=== PATIENT | female | born 1945 | race Caucasian/White ===

== ENCOUNTER 2019-04-20 10:48 | Inpatient (IN) | payer MEDICARE, OTHER ==
[2019-04-20] VITALS (8 sets, daily range): BP systolic 116–149; BP diastolic 81–102
[~2019-04-20] VITALS: Ht 170.2 cm; Wt 115.0 kg
[2019-04-20] MEDS ORDERED: DILTIAZEM 25 MG/5 ML INJ (CARDIZEM) VIAL ONE (11:34)
--- NOTE | 2019-04-20 11:37 | ED Cardiac General ---
History of Present Illness General Chief Complaint: Cardiac/General Problems Stated Complaint: A-FIB Nursing Triage Note: PT WAS AT THE EYE DR FOR A DILATION AND THEY SENT TO ER FOR RAPID HEART RATE. PT DENIES HX OF AFIB. NO SYMPTOMS ASSOCAITED WITH THE ELEVATED HEART RATE. Source: patient Exam Limitations: no limitations History of Present Illness Date Seen by Provider: Apr 20, 2019 Time Seen by Provider: 11:06 Initial Comments 73-year-old female was referred by the local eye doctor for evaluation of atrial fibrillation on initial examination. Patient states that she has no symptoms and but has a prior diagnosis of atrial fibrillation. Patient was being evaluated by the middle school professional for evaluation of possible ferrous foreign bodies in the eye and she is going to have an MRI of her hip after hip injury. Patient denies any history of ischemic heart disease but had a prior arrhythmias atrial fib 8 yrs ago when she had a cholecystectomy with complications. She denies ever having any medication for this. She does not recall a prior diagnosis of ischemic heart dx in the past. Patient has given informed consent for diagnostic and therapeutic services. She is aware that she has atrial fibrillation with rapid ventricular response heart rates ranging from 142 down to 125. She also has a blood pressure 146/109. Has given informed consent for diltiazem 10 mg IV and we will place her on a diltiazem drip 10 mg per hour. Timing/Duration: 1 hour Severity: mild Prior CP/Workup: no prior chest pain, other (patient reports complications with a cholecystectomy 8 years ago when she was at the [facility]. Patient reports that she was diagnosed with atrial fibrillation but no other complications and did not take any medications and also did not start taking anticoagulants) Modifying Factors: improves with movement, improves with other (atrial fibrillation with RVR appears to be a serendipitous finding) NTG SL MARKETING ANALYST: No ASA po MARKETING ANALYST: No Associated Systoms: Denies Symptoms Allergies and Home Medications Allergies Coded Allergies: No Known Drug Allergies (Unverified , 04/20/19) Patient Home Medication List Home Medication List Reviewed: Yes Review of Systems Review of Systems Constitutional: no symptoms reported EENTM: No Symptoms Reported, Other (edentulous with dentures) Respiratory: No Symptoms Reported Cardiovascular: No Symptoms Reported Gastrointestinal: No Symptoms Reported, Other (history of a cholecystectomy with complications 8 years ago [place]) Genitourinary: No Symptoms Reported Musculoskeletal: back pain, joint pain (right hip), muscle pain (right hip), muscle stiffness, muscle cramps Skin: no symptoms reported Psychiatric/Neurological: Anxiety (from cardiac arrhythmia) Endocrine: No Symptoms Reported Hematologic/Lymphatic: No Symptoms Reported Past Gjvekmb-Aupjjo-Fdsdxq Hx Patient Social History Alcohol Use: Denies Use Recreational Drug Use: No Smoking Status: Never a Smoker 2nd Hand Smoke Exposure: No Recent Foreign Travel: No Contact w/Someone Who Travel: No Recent Infectious Disease Expo: No Recent Hopitalizations: No Physical Abuse: No Sexual Abuse: No Mistreated: No Fear: No Seasonal Allergies Seasonal Allergies: No Past Medical History Surgeries: Yes Gallbladder Respiratory: No Cardiac: No Neurological: No Genitourinary: No Gastrointestinal: No Abdominal Hernia Musculoskeletal: Yes Arthritis HEENT: No Cancer: No Psychosocial: No Integumentary: No Blood Disorders: No Family Medical History Reviewed Nursing Family Hx Physical Exam Vital Signs Vital Signs - First Documented 04/20/19 11:03 Temp 36.3 Pulse 139 Resp 20 B/P (MAP) 164/91 (115) Pulse Ox 99 Capillary Refill : Less Than 3 Seconds Height, Weight, BMI Height: '" Weight: lbs. oz. kg; 39.00 BMI Method: General Appearance: No Apparent Distress, Obese, Other (examination consistent with atrial fibrillation with rapid ventricular response starting diltiazem 10 mg IV and IV) HEENT: PERRL/EOMI, Normal ENT Inspection, Pharynx Normal, Moist Mucous Membranes Neck: Full Range of Motion, Normal Inspection, Non Tender, Supple Respiratory: Chest Non Tender, Lungs Clear, Normal Breath Sounds, No Accessory Muscle Use, No Respiratory Distress Cardiovascular: No Edema, No JVD, No Murmur, Normal Peripheral Pulses, Tachycardia (atrial fibrillation with rapid ventricular response treated with diltiazem 10 mg IV and diltiazem drip and amiodarone 150 IV bolus and amiodarone drip) Gastrointestinal: Normal Bowel Sounds, No Organomegaly, No Pulsatile Mass, Non Tender, Soft Extremity: Normal Capillary Refill, Normal Inspection, No Calf Tenderness, Other (she has right hip pain and right hip tenderness with decreased range of motion) Neurologic/Psychiatric: Alert, Oriented x3, No Motor/Sensory Deficits, Normal Mood/Affect, credit product analyst II-XII Norm as Tested Skin: Normal Color, Warm/Dry Lymphatic: No Adenopathy Progress/Results/Core Measures Results/Orders Lab Results Laboratory Tests Test 04/20/19 11:10 Range/Units White Blood Count 9.1 4.3-11.0 10^3/uL Red Blood Count 3.60 L 4.35-5.85 10^6/uL Hemoglobin 9.1 L 11.5-16.0 G/DL Hematocrit 31 L 35-52 % Mean Corpuscular Volume 87 80-99 FL Mean Corpuscular Hemoglobin 25 25-34 PG Mean Corpuscular Hemoglobin Concent 29 L 32-36 G/DL Red Cell Distribution Width 15.9 H 10.0-14.5 % Platelet Count 557 H 130-400 10^3/uL Mean Platelet Volume 10.0 7.4-10.4 FL Neutrophils (%) (Auto) 76 H 42-75 % Lymphocytes (%) (Auto) 16 12-44 % Monocytes (%) (Auto) 6 0-12 % Eosinophils (%) (Auto) 1 0-10 % Basophils (%) (Auto) 0 0-10 % Neutrophils # (Auto) 6.9 1.8-7.8 X 10^3 Lymphocytes # (Auto) 1.4 1.0-4.0 X 10^3 Monocytes # (Auto) 0.6 0.0-1.0 X 10^3 Eosinophils # (Auto) 0.1 0.0-0.3 10^3/uL Basophils # (Auto) 0.0 0.0-0.1 10^3/uL Neutrophils % (Manual) 78 % Lymphocytes % (Manual) 18 % Monocytes % (Manual) 4 % Microcytosis MODERATE Sodium Level 138 135-145 MMOL/L Potassium Level 4.4 3.6-5.0 MMOL/L Chloride Level 102 98-107 MMOL/L Carbon Dioxide Level 21 21-32 MMOL/L Anion Gap 15 H 5-14 MMOL/L Blood Urea Nitrogen 18 7-18 MG/DL Creatinine 0.86 0.60-1.30 MG/DL Estimat Glomerular Filtration Rate > 60 BUN/Creatinine Ratio 21 Glucose Level 104 70-105 MG/DL Calcium Level 10.1 8.5-10.1 MG/DL Corrected Calcium 9.7 8.5-10.1 MG/DL Magnesium Level 2.2 1.6-2.4 MG/DL Total Bilirubin 0.8 0.1-1.0 MG/DL Aspartate Amino Transf (AST/SGOT) 23 5-34 U/L Alanine Aminotransferase (ALT/SGPT) 13 0-55 U/L Alkaline Phosphatase 112 40-136 U/L Total Protein 8.3 H 6.4-8.2 GM/DL Albumin 4.5 3.2-4.5 GM/DL Micro Results Microbiology 04/20/19 Influenza Types A,B Antigen (JACK) - Final, Complete My Orders Orders - MIMI NINO DO Ekg Tracing (04/20/19 11:27) Cbc And Manual Diff (04/20/19 11:27) Comprehensive Metabolic Panel (04/20/19 11:27) Urinalysis (04/20/19 11:27) Magnesium (04/20/19 11:27) Chest 1 View Ap/Pa Only (04/20/19 11:27) Influenza A And B Antigens (04/20/19 11:27) Diltiazem Injection (Cardizem Injection) (04/20/19 11:34) Diltiazem Injection (Cardizem Injection) (04/20/19 12:00) Ns (Ivpb) (Sodium C... W/Diltiazem Iv Fo (04/20/19 11:50) Diltiazem Drip Pre-Mix (Cardizem Drip Pr (04/20/19 11:51) Amiodarone Bolus (04/20/19 12:45) Amiodarone Drip (04/20/19 12:45) Medications Given in ED Current Medications Medications Dose Ordered Sig/Jose E Route Start Time Stop Time Status Last Admin Dose Admin Diltiazem HCl 10 mg ONCE ONCE IVP 04/20/19 12:00 04/20/19 12:01 DC 04/20/19 12:00 10 MG Vital Signs/I&O 04/20/19 04/20/19 11:03 11:59 Temp 36.3 Pulse 139 140 Resp 20 B/P (MAP) 164/91 (115) Pulse Ox 99 Blood Pressure Mean: 115 Initial ECG Impression Date: Apr 20, 2019 Initial ECG Impression Time: 10:52 Initial ECG Rate: 135 Initial ECG Rhythm: A Fib/Flutter (AF with RVR) Initial ECG Impression: Atrial Fibrillation w/RVR Departure Impression Primary Impression: Atrial fibrillation Additional Impression: Atrial fibrillation with rapid ventricular response Disposition: ADMITTED INPATIENT Condition: Stable Admissions Decision to Admit Reason: Admit from ER (General) Decision to Admit/Date: Apr 20, 2019 Time/Decision to Admit Time: 12:46 Departure-Patient Inst. Referrals: NO,LOCAL PHYSICIAN (PCP/Family) Primary Care Physician Patient Instructions: Atrial Fibrillation MIMI NINO DO Apr 20, 2019 11:36
[2019-04-20 11:42] LABS: HEMATOCRIT 31 % (35-52); HEMOGLOBIN 9.1 G/DL (11.5-16.0); MEAN CORPUSCULAR HEMOGLOBIN 25 PG (25-34); WHITE BLOOD COUNT 9.1 10^3/uL (4.3-11.0)
[2019-04-20 11:43] LABS: BASOPHILS % (AUTO) 0 % (0-10); EOSINOPHILS # (AUTO) 0.1 10^3/uL (0.0-0.3); EOSINOPHILS % (AUTO) 1 % (0-10); LYMPHOCYTES # (AUTO) 1.4 X 10^3 (1.0-4.0); LYMPHOCYTES % (AUTO) 16 % (12-44); MEAN CORPUSCULAR HGB CONC 29 G/DL (32-36); MEAN CORPUSCULAR VOLUME 87 FL (80-99); MONOCYTES # (AUTO) 0.6 X 10^3 (0.0-1.0); MONOCYTES % (AUTO) 6 % (0-12); NEUTROPHILS # (AUTO) 6.9 X 10^3 (1.8-7.8); NEUTROPHILS % (AUTO) 76 % (42-75); PLATELET COUNT 557 10^3/uL (130-400); RED CELL DISTRIBUTION WIDTH 15.9 % (10.0-14.5)
[2019-04-20] MEDS ORDERED: DILTIAZEM IV FOR DRIP 125 MG in NS (IVPB) 100 ML IV STA (11:50)
[2019-04-20] MEDS ORDERED: dilTIAZem DRIP PRE-MIX 125 ML IV ONE (11:51)
[2019-04-20 11:58] LABS: BUN/CREATININE RATIO 21; CARBON DIOXIDE 21 MMOL/L (21-32); CHLORIDE 102 MMOL/L (98-107); CREATININE SERUM 0.86 MG/DL (0.60-1.30); GFR ESTIMATED > 60; GLUCOSE 104 MG/DL (70-105); POTASSIUM 4.4 MMOL/L (3.6-5.0); SODIUM 138 MMOL/L (135-145)
[2019-04-20 11:59] LABS: ALANINE AMINOTRANSFERASE 13 U/L (0-55); ALBUMIN 4.5 GM/DL (3.2-4.5); ALKALINE PHOSPHATASE 112 U/L (40-136); BILIRUBIN,TOTAL 0.8 MG/DL (0.1-1.0); CALCIUM 10.1 MG/DL (8.5-10.1); MAGNESIUM 2.2 MG/DL (1.6-2.4); TOTAL PROTEIN 8.3 GM/DL (6.4-8.2)
[2019-04-20] MEDS ORDERED: DILTIAZEM 25 MG/5 ML INJ (CARDIZEM) VIAL IVP ONE (12:00)
--- NOTE | 2019-04-20 12:20 | Diagnostic Imaging Report ---
EXAMINATION: Chest one view at 11:44 a.m. INDICATION: Tachycardia. COMPARISON: There are no prior studies available for comparison. FINDINGS: The heart size is at the upper limits of normal. The lungs are generally clear. There is no evidence for failure, pneumonia, or for pleural effusion. The mediastinum is not widened. The osseous structures are intact. External cardiac monitoring electrodes are noted. IMPRESSION: There is no evidence for active disease. Dictated by: Dictated on workstation # [id number]
[2019-04-20 12:26] LABS: LYMPHOCYTES % (MANUAL) 18 %; NEUTROPHILS % (MANUAL) 78 %
[2019-04-20 12:27] LABS: MICROCYTOSIS MODERATE; MONOCYTES % (MANUAL) 4 %
[2019-04-20] MEDS ORDERED: AMIODARONE INJECTION 450 MG in D5W IV SOLUTION (EXCEL) 250 ML IV ONE (12:45)
[2019-04-20] MEDS ORDERED: AMIODARONE FOR BOLUS 150 MG in D5W 100 ML IVPB 100 ML IV ONE (12:45)
[2019-04-20] MEDS ORDERED: AMIODARONE 450 MG/250 ML D5W EXCEL IV SCH ×2 (13:13)
--- NOTE | 2019-04-20 15:55 | NUR ---
ATTEMPTED TO CALL REPORT TO ICU AT THIS TIME.
[2019-04-20] MEDS ORDERED: CATHETER FLUSH 10 ML SYR IV PRN (17:15)
[2019-04-20] MEDS ORDERED: FLU QUADRIvalent (5+ YOA) 2019-2020 (AFLURIA) 0.5 ML IM ONE (17:30)
[2019-04-20] MEDS: DILTIAZEM DRIP IV SCH (17:54)
[2019-04-20] MEDS: PRE MIX IV SCH (17:54)
[2019-04-20] MEDS: APIXABAN 5 MG (ELIQUIS) TABLET PO SCH (20:24)
[2019-04-20] MEDS: CATHETER FLUSH 10 ML SYR IV SCH (21:00)
[2019-04-21] VITALS (13 sets, daily range): BP systolic 95–144; BP diastolic 59–101
[2019-04-21] MEDS: PRE MIX IV SCH ×3 (02:35→19:44)
[2019-04-21] MEDS: DILTIAZEM DRIP IV SCH ×3 (02:35→19:44)
[2019-04-21 03:33] LABS: BASOPHILS % (AUTO) 0 % (0-10); EOSINOPHILS # (AUTO) 0.1 10^3/uL (0.0-0.3); EOSINOPHILS % (AUTO) 1 % (0-10); HEMATOCRIT 28 % (35-52); HEMOGLOBIN 7.9 G/DL (11.5-16.0); LYMPHOCYTES # (AUTO) 1.3 X 10^3 (1.0-4.0); LYMPHOCYTES % (AUTO) 13 % (12-44); MEAN CORPUSCULAR HEMOGLOBIN 25 PG (25-34); MEAN CORPUSCULAR HGB CONC 28 G/DL (32-36); MEAN CORPUSCULAR VOLUME 88 FL (80-99); MEAN PLATELET VOLUME 10.1 FL (7.4-10.4); MONOCYTES # (AUTO) 0.7 X 10^3 (0.0-1.0); MONOCYTES % (AUTO) 8 % (0-12); NEUTROPHILS # (AUTO) 7.3 X 10^3 (1.8-7.8); NEUTROPHILS % (AUTO) 78 % (42-75); PLATELET COUNT 431 10^3/uL (130-400); RED CELL DISTRIBUTION WIDTH 16.6 % (10.0-14.5); WHITE BLOOD COUNT 9.4 10^3/uL (4.3-11.0)
[2019-04-21 04:01] LABS: ALBUMIN 4.2 GM/DL (3.2-4.5); CALCIUM 9.7 MG/DL (8.5-10.1); CREATININE SERUM 0.92 MG/DL (0.60-1.30); POTASSIUM 4.1 MMOL/L (3.6-5.0); TOTAL PROTEIN 7.1 GM/DL (6.4-8.2)
[2019-04-21] MEDS: CATHETER FLUSH 10 ML SYR IV SCH ×3 (05:20→21:05)
--- NOTE | 2019-04-21 06:56 | NUR ---
PT A/O. REMAINS AFEBRILE. VSS. REMAINS ON CARZIME AND AMIO GTT.TITRATED ORDERED. AT THE BEDSIDE. DENIES NEEDS. STABLE. SLEEPS WELL FOR THE NIGHT. WILL GIVE REPORT TO ONCOMING RN
[2019-04-21] MEDS: APIXABAN 5 MG (ELIQUIS) TABLET PO SCH ×2 (08:26→21:05)
[2019-04-21] MEDS ORDERED: POLYETHYLENE GLYCOL 17 GM (MIRALAX) PACK PO PRN (10:45)
[2019-04-21] MEDS ORDERED: ONDANSETRON 4 MG/2 ML (SDV) Z0FRAN IV PRN (10:45)
[2019-04-21] MEDS ORDERED: ANTACID SUSP 30 ML UDC (MYLANTA) PO PRN (10:45)
[2019-04-21] MEDS ORDERED: ONDANSETRON 4 MG (ZOFRAN) ORAL DISSOLVE TAB PO PRN (10:45)
[2019-04-21] MEDS ORDERED: MELATONIN 3 MG TABLET PO PRN (10:45)
[2019-04-21] MEDS ORDERED: BISACODYL 10 MG SUPP (DULCOLAX) PR PRN (10:45)
--- NOTE | 2019-04-21 10:49 | History & Physical-Hospitalist ---
History of Present Illness HPI/Chief Complaint Vinod Starks is a 73-year-old female with no known past medical history who presented from an optometry clinic with atrial fibrillation with rapid ventricular response. She reports that she has been having issues with her hip and she believes she has torn something. She also has a history of exposure to metals and there is concern that there may be metal in her eyes and that is why she was having an optometry evaluation prior to an MRI. At that evaluation they found her heart rate to be well above 100 and they sent her to the emergency room. She has no history of hypertension, diabetes, irregular heartbeat, or heart disease. She does not take any regular medications other than pain medicines at this time for her hip. Source: patient Exam Limitations: no limitations Date Seen 04/21/19 Time Seen by a Provider: 08:10 Attending Physician Louisa Lucia MD PCP No,Local Physician Referring Physician Date of Admission Apr 20, 2019 at 14:08 Home Medications & Allergies Home Medications Reviewed patient Home Medication Reconciliation performed by pharmacy medication reconciliations cogeneration technician and/or nursing. Patients Allergies have been reviewed. Allergies Allergies Coded Allergies No Known Drug Allergies (Unverified04/20/19) Past Ptnbtpw-Mrsqni-Apgwgd Hx Past Med/Social Hx: Reviewed Nursing Past Med/Soc Hx Patient Social History Alcohol Use: Denies Use Recreational Drug Use: No Smoking Status: Never a Smoker 2nd Hand Smoke Exposure: No Recent Foreign Travel: No Contact w/other who traveled: No Recent Hopitalizations: No Recent Infectious Disease Expo: No Immunizations Up To Date Date of Pneumonia Vaccine: Apr 20, 2011 Seasonal Allergies Seasonal Allergies: No Past Medical History Surgeries: Gallbladder Gastrointestinal: Abdominal Hernia Musculoskeletal: Arthritis History of Blood Disorders: No Family History Reviewed Nursing Family Hx Review of Systems Constitutional: no symptoms reported EENTM: no symptoms reported Respiratory: no symptoms reported Cardiovascular: palpitations Gastrointestinal: no symptoms reported Genitourinary: no symptoms reported Musculoskeletal: joint pain Skin: no symptoms reported Psychiatric/Neurological: No Symptoms Reported Physical Exam Physical Exam Vital Signs Vital Signs - First Documented 04/20/19 04/20/19 11:03 15:59 Temp 36.3 Pulse 139 Resp 20 B/P (MAP) 164/91 (115) Pulse Ox 99 O2 Delivery Room Air Capillary Refill : Less Than 3 SecondsLess Than 3 Seconds Height, Weight, BMI Height: '" Weight: lbs. oz. kg; 41.97 BMI Method: General Appearance: No Apparent Distress, Obese HEENT: PERRL/EOMI, Pharynx Normal Neck: Normal Inspection, Supple Respiratory: Lungs Clear, Normal Breath Sounds, No Respiratory Distress Cardiovascular: Irregularly Irregular, Tachycardia Gastrointestinal: Normal Bowel Sounds, Non Tender, Soft Extremity: Normal Inspection, Non Tender, Pedal Edema Neurologic/Psychiatric: Alert, Oriented x3, No Motor/Sensory Deficits, Normal Mood/Affect Skin: Normal Color, Warm/Dry Results Results/Procedures Labs Laboratory Tests 04/20/19 11:10 04/21/19 03:23 Patient resulted labs reviewed. Imaging: Reviewed Imaging Report Assessment/Plan Admission Diagnosis paroxysmal atrial fibrillation with rapid ventricular response Admission Status: Inpatient Order (span 2 midnights) Reason for Inpatient Admission: A. fib with RVR requiring IV medications and further evaluation Assessment and Plan Paroxysmal atrial fibrillation with rapid ventricular response Cardiology consulted, appreciate assistance EKG revealed atrial fibrillation Started on diltiazem and amiodarone Eliquis started for stroke prophylaxis Echocardiogram ordered Potassium and magnesium within normal limits Monitor on telemetry check TSH Microcytic anemia hemoglobin 7.9 MCV 88, differential revealed microcytosis Obtain iron studies, B12, folate morbid obesity BMI 42, clinically significant, no acute management needs DVT prophylaxis: already receiving therapeutic anticoagulation Diagnosis/Problems Diagnosis/Problems (1) Atrial fibrillation with rapid ventricular response Status: Acute (2) Anemia Status: Chronic Qualifiers: Anemia type: unspecified type Qualified Codes: D64.9 - Anemia, unspecified (3) Morbid obesity Status: Chronic Clinical Quality Measures AMI/AHF: ASA po Prior to arrival: No DVT/VTE Risk/Contraindication: Risk Factor Score Per Nursin RFS Level Per Nursing on Admit: 4+=Very High LOUISA LUCIA MD Apr 21, 2019 10:49
--- NOTE | 2019-04-21 14:31 | Consultation-Cardiology ---
HPI-Cardiology Cardiology Consultation: Date of Consultation 04/21/19 Date of Admission Attending Physician Louisa Rucker MD Admitting Physician Ana,Local Physician Consulting Physician Megan AWY MD HPI: Time Seen by a Provider: 12:00 Chief Complaint: Rapid atrial fibrillation This is a 73-year-old lady who denies having any significant part cardiac history. She has significant pain in the hip joint. She requires an MRI. However she was previously employed in a factory and there is possibility of small metal particles in the eye. Therefore for that purpose she went to an op tometrist where she was found to have significantly elevated blood pressure and heart rate. She was therefore transferred to the ER. She denies active smoking or pertinent family history. She was found to be in atrial fibrillation with RVR and transferred to [facility]. She denies any significant chest pain, syncope, near-syncope. Review of Systems-Cardiology Review of Systems Constitutional: As described under HPI; No As described under HPI, No no symptoms reported, No chills, No fever, No lightheadedness Eyes: No As described under HPI, No no symptoms reported, No blindness, No blurred vision, No contact lenses, No drainage, No decreased acuity, No foreign body sensation, No pain, No vision change Ears/Nose/Throat: No As described under HPI, No no symptoms reported, No chronic hearing loss, No ear discharge, No ear pain, No nasal drainage, No ulcerations Respiratory: No no symptoms reported; As described under HPI; No As described under HPI, No cough, No orthopnea, No shortness of breath, No SOB with excertion Cardiovascular: No no symptoms reported; As described under HPI; No As described under HPI, No chest pain, No edema, No irregular heart rate, No lightheadedness, No palpitations Gastrointestinal: No no symptoms reported, No As described under HPI, No abdomen distended, No abdominal pain, No blood streaked bowels, No constipation, No diarrhea, No nausea, No vomiting, No stool coloration changes Genitourinary: No As described under HPI, No burning, No dysuria, No discharge, No frequency, No flank pain, No hematuria, No urgency : Yes : No Skin: No rash, No skin related problems, No ulcerations Psychiatric/Neurological: No anxiety, No depression, No seizure, No focal weakness, No syncope Hematologic: No bleeding abnormalities JUU-Ksvagk-Jnpzqs Hx Patient Social History Alcohol Use: Denies Use Recreational Drug Use: No Smoking Status: Never a Smoker 2nd Hand Smoke Exposure: No Recent Foreign Travel: No Recent Infectious Disease Expo: No Hospitalization with Isolation: Denies Immunizations Up To Date Date of Pneumonia Vaccine: Apr 20, 2011 Past Medical History PMH As described under Assessment. Allergies and Home Medications Allergies Coded Allergies: No Known Drug Allergies (Unverified , 04/20/19) Patient Home Medication List Home Medication List Reviewed: Yes Physical Exam-Cardiology Physical Exam Vital Signs/I&O 04/21/19 04/21/19 04/21/19 04/21/19 03:00 04:00 04:00 05:00 Temp 36.2 Pulse 99 87 87 Resp 15 19 16 B/P (MAP) 115/76 (89) Pulse Ox 97 93 94 O2 Delivery Room Air Room Air 04/21/19 04/21/19 04/21/19 04/21/19 06:00 07:00 08:00 08:00 Pulse 78 99 111 Resp 15 15 B/P (MAP) 118/71 (87) 144/80 (101) Pulse Ox 97 96 99 O2 Delivery Room Air Room Air Room Air 04/21/19 04/21/19 04/21/19 04/21/19 08:38 09:00 12:00 13:00 Temp 35.8 Pulse 104 107 Resp 19 B/P (MAP) 132/82 (99) Pulse Ox 96 99 O2 Delivery Room Air Room Air 04/21/19 04/21/19 13:00 14:00 Pulse 107 103 Resp 15 28 B/P (MAP) 129/86 (100) 130/82 (98) Pulse Ox 100 99 O2 Delivery Room Air Room Air 04/21/19 00:00 Intake Total 200 ml Output Total 300 ml Balance -100 ml Capillary Refill : Less Than 3 SecondsLess Than 3 Seconds Constitutional: appears stated age, AAO x 3; No apparent distress; PERRL, well- developed, well-nourished HEENT: PERRL; No discharge; hearing is well preserved, oral hygience is good; No ulceration, No xanthelasmas are seen Neck: No carotid bruit; carotid pulses are 2 + bilaterally Respiratory: chest is bilaterally symmetric, lungs clear to auscultation Cardiovascular: irregularly irregular, tachycardia, S1 and S2 Gastrointestinal: soft, audible bowel sounds; No spleenomegaly Rectal: deferred Extremities: normal range of motion, non-tender, normal inspection; No clubbing, No cyanosis; no lower extremity edema bilateral; No significant edema Neurologic/Psychiatric: no motor/sensory deficits, alert, normal mood/affect, oriented x 3, power is 5/5 both on sides Skin: normal color, warm/dry; No rash, No ulcerations Data Review Labs Laboratory Tests 04/21/19 03:23: White Blood Count 9.4, Red Blood Count 3.20L, Hemoglobin 7.9L, Hematocrit 28L, Mean Corpuscular Volume 88, Mean Corpuscular Hemoglobin 25, Mean Corpuscular Hemoglobin Concent 28L, Red Cell Distribution Width 16.6H, Platelet Count 431H, Mean Platelet Volume 10.1, Neutrophils (%) (Auto) 78H, Lymphocytes (%) (Auto) 13, Monocytes (%) (Auto) 8, Eosinophils (%) (Auto) 1, Basophils (%) (Auto) 0, Neutrophils # (Auto) 7.3, Lymphocytes # (Auto) 1.3, Monocytes # (Auto) 0.7, Eosinophils # (Auto) 0.1, Basophils # (Auto) 0.0, Sodium Level 136, Potassium Level 4.1, Chloride Level 106, Carbon Dioxide Level 21, Anion Gap 9, Blood Urea Nitrogen 14, Creatinine 0.92, Estimat Glomerular Filtration Rate 60, BUN/Creatinine Ratio 15, Glucose Level 109H, Calcium Level 9.7, Corrected Calcium 9.5, Total Bilirubin 1.0, Aspartate Amino Transf (AST/SGOT) 12, Alanine Aminotransferase (ALT/SGPT) 12, Alkaline Phosphatase 109, Total Protein 7.1, Albumin 4.2 04/21/19 11:15: Thyroid Stimulating Hormone (TSH) 0.96 Microbiology 04/20/19 Influenza Types A,B Antigen (JACK) - Final, Complete ECG Impression ECG Initial ECG Impression: Atrial Fibrillation w/RVR A/P-Cardiology Assessment/Admission Diagnosis Atrial fibrillation with rapid ventricular rate, Typical atrial flutter, Significantly elevated blood sugars, Anemia. Plan Atrial fibrillation with rapid ventricular rate, IV amiodarone, IV Cardizem, Eliquis. If she doesn't convert on her own overnight. Transesophageal echocardiogram assisted cardioversion in the morning. I discussed at length with the patient about the pathophysiology of atrial fibrillation. Informed consent was taken. 1/500 chance of stroke with cardioversion. A small chance of feces future damage with transesophageal echocardiogram. Typical atrial flutter, close review of the telemetry strips suggest atrial flutter which degenerates into atrial fibrillation. Typical atrial flutter cannot be ruled out. She may require typical atrial flutter ablation in the future. Significantly elevated blood sugars, deferred to the primary team. Anemia. Deferred to the primary team. Thank you for your consultation. Please call me if you have any questions. Raghav Way MD, FACP, FACC, FSCAI, FHRS, CCDS Interventional Cardiology Cardiac Electrophysiology Vascular Medicine and Endovascular Interventions Clinical Quality Measures AMI/AHF: ASA po Prior to arrival: No DVT/VTE Risk/Contraindication: Risk Factor Score Per Nursin RFS Level Per Nursing on Admit: 4+=Very High Megan WAY MD Apr 21, 2019 14:31
[2019-04-21] MEDS: AMIODARONE 200 MG (CORDARONE) TAB PO SCH (14:39)
[2019-04-21] MEDS: ACETAMINOPHEN 325 MG TABLET PO PRN (18:48)
[2019-04-21] MEDS: SENNOSIDES 8.6 MG (SENOKOT) TAB PO SCH (21:05)
[2019-04-21] MEDS: DOCUSATE SODIUM 100 MG (COLACE) CAP PO SCH (21:05)
[2019-04-22] VITALS (10 sets, daily range): BP systolic 113–136; BP diastolic 65–92
[2019-04-22 03:18] LABS: BASOPHILS % (AUTO) 0 % (0-10); EOSINOPHILS # (AUTO) 0.2 10^3/uL (0.0-0.3); EOSINOPHILS % (AUTO) 2 % (0-10); HEMATOCRIT 28 % (35-52); HEMOGLOBIN 7.9 G/DL (11.5-16.0); LYMPHOCYTES # (AUTO) 1.5 X 10^3 (1.0-4.0); LYMPHOCYTES % (AUTO) 19 % (12-44); MEAN CORPUSCULAR HEMOGLOBIN 25 PG (25-34); MEAN CORPUSCULAR HGB CONC 29 G/DL (32-36); MEAN CORPUSCULAR VOLUME 88 FL (80-99); MEAN PLATELET VOLUME 9.9 FL (7.4-10.4); MONOCYTES # (AUTO) 0.7 X 10^3 (0.0-1.0); MONOCYTES % (AUTO) 9 % (0-12); NEUTROPHILS # (AUTO) 5.7 X 10^3 (1.8-7.8); NEUTROPHILS % (AUTO) 70 % (42-75); PLATELET COUNT 444 10^3/uL (130-400); RED CELL DISTRIBUTION WIDTH 16.2 % (10.0-14.5); WHITE BLOOD COUNT 8.1 10^3/uL (4.3-11.0)
[2019-04-22 03:44] LABS: ALANINE AMINOTRANSFERASE 12 U/L (0-55); ALBUMIN 3.9 GM/DL (3.2-4.5); ALKALINE PHOSPHATASE 100 U/L (40-136); BILIRUBIN,TOTAL 0.9 MG/DL (0.1-1.0); BUN/CREATININE RATIO 17; CALCIUM 9.6 MG/DL (8.5-10.1); CARBON DIOXIDE 19 MMOL/L (21-32); CHLORIDE 108 MMOL/L (98-107); GFR ESTIMATED > 60; GLUCOSE 106 MG/DL (70-105); POTASSIUM 3.8 MMOL/L (3.6-5.0); SODIUM 138 MMOL/L (135-145); TOTAL PROTEIN 7.2 GM/DL (6.4-8.2)
[2019-04-22] MEDS: DILTIAZEM DRIP IV SCH (04:33)
[2019-04-22] MEDS: PRE MIX IV SCH (04:33)
[2019-04-22] MEDS: CATHETER FLUSH 10 ML SYR IV SCH ×3 (06:22→21:27)
[2019-04-22] MEDS: SENNOSIDES 8.6 MG (SENOKOT) TAB PO SCH ×2 (07:58→21:25)
[2019-04-22] MEDS: APIXABAN 5 MG (ELIQUIS) TABLET PO SCH ×2 (07:58→21:25)
[2019-04-22] MEDS: DOCUSATE SODIUM 100 MG (COLACE) CAP PO SCH ×2 (07:58→21:25)
[2019-04-22] MEDS: AMIODARONE 200 MG (CORDARONE) TAB PO SCH (07:58)
[2019-04-22] MEDS: FERROUS SULF 325 MG (IRON) TAB PO SCH ×3 (08:01→17:43)
[2019-04-22] MEDS ORDERED: LIDOCAINE 2% VISCOUS 15 ML UDC PO ONE ×2 (09:30→10:00)
[2019-04-22] MEDS: NS IV 500 ML 500 ML IV SCH (09:52)
--- NOTE | 2019-04-22 09:55 | Progress Note - Hospitalist ---
Subjective HPI/CC On Admission Date Seen by Provider: Apr 22, 2019 Time Seen by Provider: 08:20 Vinod Starks is a 73-year-old female with no known past medical history who presented from an optometry clinic with atrial fibrillation with rapid ventricular response. She reports that she has been having issues with her hip and she believes she has torn something. She also has a history of exposure to metals and there is concern that there may be metal in her eyes and that is why she was having an optometry evaluation prior to an MRI. At that evaluation they found her heart rate to be well above 100 and they sent her to the emergency room. She has no history of hypertension, diabetes, irregular heartbeat, or heart disease. She does not take any regular medications other than pain medicines at this time for her hip. Subjective/Events-last exam She reports that she slept well last night. She denies any chest pain or palpitations. She denies any shortness of breath. She denies any fevers or chi lls. She denies any abdominal pain, nausea, or vomiting. She has no other complaints or concerns. Objective Exam Vital Signs Vital Signs Date Time Temp Pulse Resp B/P (MAP) Pulse Ox O2 Delivery O2 Flow Rate FiO2 04/22/19 09:00 98 Room Air 04/22/19 08:00 35.8 04/22/19 07:00 90 04/22/19 06:00 22 113/80 (91) Capillary Refill : Less Than 3 SecondsLess Than 3 Seconds General Appearance: No Apparent Distress, Obese HEENT: PERRL/EOMI, Pharynx Normal Neck: Normal Inspection, Supple Respiratory: Lungs Clear, Normal Breath Sounds, No Respiratory Distress Cardiovascular: Irregularly Irregular, Tachycardia Gastrointestinal: Normal Bowel Sounds, Non Tender, Soft Extremity: Normal Inspection, Non Tender, No Pedal Edema Neurologic/Psychiatric: Alert, Oriented x3, No Motor/Sensory Deficits, Normal Mood/Affect Skin: Normal Color, Warm/Dry Results/Procedures Lab Laboratory Tests 04/22/19 02:57 Patient resulted labs reviewed. Imaging: Reviewed Imaging Report Assessment/Plan Assessment and Plan Assess & Plan/Chief Complaint Paroxysmal atrial fibrillation with rapid ventricular response Cardiology consulted, appreciate assistance continue IV diltiazem and oral amiodarone continue Eliquis possible ANA MARIA cardioversion today Microcytic anemia hemoglobin 7.9, stable B12 and folate normal Iron studies with low ferritin and saturation begin Ferrous sulfate morbid obesity BMI 41.7, clinically significant, no acute management needs DVT prophylaxis: already receiving therapeutic anticoagulation Diagnosis/Problems Diagnosis/Problems (1) Atrial fibrillation with rapid ventricular response Status: Acute (2) Anemia Status: Chronic Qualifiers: Anemia type: unspecified type Qualified Codes: D64.9 - Anemia, unspecified (3) Morbid obesity Status: Chronic Clinical Quality Measures AMI/AHF: ASA po Prior to arrival: No DVT/VTE Risk/Contraindication: Risk Factor Score Per Nursin RFS Level Per Nursing on Admit: 4+=Very High VALERIANO LUCIA MD Apr 22, 2019 09:55
[2019-04-22] MEDS ORDERED: MIDAZOLAM 2 MG/2 ML (VERSED) VIAL IVP ONE (10:00)
[2019-04-22] MEDS ORDERED: MIDAZOLAM 2 MG/2 ML (VERSED) VIAL IM ONE (10:00)
[2019-04-22] MEDS ORDERED: MIDAZOLAM 2 MG/2 ML (VERSED) VIAL ONE (10:02)
--- NOTE | 2019-04-22 10:23 | Cardiology Progress Note ---
Cardiology SOAP Progress Note Subjective: still in AF with RVR Objective: I&O/Vital Signs 04/21/19 04/22/19 04/22/19 04/22/19 23:00 00:00 00:00 01:00 Pulse 92 95 92 Resp 28 23 19 B/P (MAP) 99/59 (72) 123/77 (92) 126/82 (97) Pulse Ox 96 96 99 94 O2 Delivery Room Air Room Air Room Air Room Air 04/22/19 04/22/19 04/22/19 04/22/19 01:00 02:00 03:00 04:00 Temp 36.6 Pulse 99 95 112 Resp 19 14 B/P (MAP) 116/65 (82) 117/71 (86) Pulse Ox 98 97 O2 Delivery Room Air Room Air 04/22/19 04/22/19 04/22/19 04/22/19 04:00 04:00 05:00 06:00 Pulse 73 106 88 Resp 19 24 22 B/P (MAP) 118/70 (86) 118/77 (91) 113/80 (91) Pulse Ox 99 91 99 98 O2 Delivery Room Air Room Air Room Air Room Air 04/22/19 04/22/19 04/22/19 04/22/19 07:00 08:00 08:00 09:00 Temp 35.8 Pulse 90 Pulse Ox 99 98 O2 Delivery Room Air Room Air 04/22/19 00:00 Intake Total 900 ml Output Total 1800 ml Balance -900 ml Constitutional: appears stated age, AAO x 3; No apparent distress; PERRL, well- developed, well-nourished Respiratory: chest is bilaterally symmetric, lungs clear to auscultation Cardiovascular: irregularly irregular, tachycardia, S1 and S2 Gastrointestional: soft, audible bowel sounds; No spleenomegaly Extremities: normal range of motion, non-tender, normal inspection; No clubbing, No cyanosis; no lower extremity edema bilateral; No significant edema Neurologic/Psychiatric: no motor/sensory deficits, alert, normal mood/affect, oriented x 3, power is 5/5 both on sides Skin: normal color, warm/dry; No rash, No ulcerations Results/Procedures: Labs Laboratory Tests 04/21/19 11:15: Iron Level 41, Total Iron Binding Capacity 451H, Unsaturated Iron Binding Capacity 410, Transferrin % Saturation 9L, Ferritin 17.7L, Vitamin B12 Level 453, Folate 8.6, Thyroid Stimulating Hormone (TSH) 0.96 04/22/19 02:57: White Blood Count 8.1, Red Blood Count 3.13L, Hemoglobin 7.9L, Hematocrit 28L, Mean Corpuscular Volume 88, Mean Corpuscular Hemoglobin 25, Mean Corpuscular Hemoglobin Concent 29L, Red Cell Distribution Width 16.2H, Platelet Count 444H, Mean Platelet Volume 9.9, Neutrophils (%) (Auto) 70, Lymphocytes (%) (Auto) 19, Monocytes (%) (Auto) 9, Eosinophils (%) (Auto) 2, Basophils (%) (Auto) 0, Neutrophils # (Auto) 5.7, Lymphocytes # (Auto) 1.5, Monocytes # (Auto) 0.7, Eosinophils # (Auto) 0.2, Basophils # (Auto) 0.0, Sodium Level 138, Potassium Level 3.8, Chloride Level 108H, Carbon Dioxide Level 19L, Anion Gap 11, Blood Urea Nitrogen 15, Creatinine 0.90, Estimat Glomerular Filtration Rate > 60, BUN/Creatinine Ratio 17, Glucose Level 106H, Calcium Level 9.6, Corrected Calcium 9.7, Total Bilirubin 0.9, Aspartate Amino Transf (AST/SGOT) 12, Alanine Aminotransferase (ALT/SGPT) 12, Alkaline Phosphatase 100, Total Protein 7.2, Alb umin 3.9 Microbiology 04/20/19 Influenza Types A,B Antigen (JACK) - Final, Complete A/P: Assessment/Dx: Atrial fibrillation with rapid ventricular rate, Typical atrial flutter, Significantly elevated blood sugars, Anemia. Plan: Atrial fibrillation with rapid ventricular rate, IV amiodarone, IV Cardizem, Eliquis. still in AF. Transesophageal echocardiogram assisted cardioversion today. I discussed at length with the patient about the pathophysiology of atrial fibrillation. Informed consent was taken. 1/500 chance of stroke with cardioversion. A small chance of esophageal damage with transesophageal echocardiogram. Typical atrial flutter, close review of the telemetry strips suggest atrial flutter which degenerates into atrial fibrillation. Typical atrial flutter cannot be ruled out. She may require typical atrial flutter ablation in the future. Significantly elevated blood sugars, deferred to the primary team. Anemia. Deferred to the primary team. Thank you for your consultation. Please call me if you have any questions. Raghav Way MD, FACP, FACC, FSCAI, FHRS, CCDS Interventional Cardiology Cardiac Electrophysiology Vascular Medicine and Endovascular Interventions Clinical Quality Measures AMI/AHF: ASA po Prior to arrival: Megan Bravo MD Apr 22, 2019 10:23
--- NOTE | 2019-04-22 11:00 | NUR ---
TIMELINE 1010 ANESTHESIA AND THIS RN AT BEDSIDE. PT READY. 1018 ANESTHESIA TO GIVE MEDICATIONS. 1026 DR CASTELLANOS AND PERSONAL LOAN SPECIALIST AT BEDSIDE. ANA MARIA STARTED. 1038 DEFIB SYNCHRONIZED AND CHARGED. ORDER TO SHOCK GIVEN. PT CLEARED AND SHOCKED AT 200J PER DR CASTELLANOS DELIVERED. EKG ORDERED AND OBTAINED. EKG PLACED ON CHART. THIS NURSE AT BEDSIDE TO MONITOR PT.
--- NOTE | 2019-04-22 11:25 | Anesthesia-General Post-Op ---
MAC Patient Condition Mental Status/LOC: Same as Preop Cardiovascular: Satisfactory Nausea/Vomiting: Absent Respiratory: Satisfactory Pain: Controlled Complications: Absent Post Op Complications Complications None Follow Up Care/Instructions Patient Instructions None needed. Anesthesiology Discharge Order Discharge Order Patient is doing well, no complaints, stable vital signs, no apparent adverse anesthesia problems. No complications reported per nursing. LICHA OLSEN CRNA Apr 22, 2019 11:25
--- NOTE | 2019-04-22 11:30 | Cardioversion ---
Cardioversion PROCEDURE PHYSICIAN: Raghav Way MD DATE OF PROCEDURE: 04/22/19 DIRECT EXTERNAL ELECTRICAL CARDIOVERSION: Indications: Atrial Fibrillation with rapid ventricular rate Preoperative diagnoses: Atrial Fibrillation with rapid ventricular rate Postoperative diagnosis: Sinus rhythm, Successful Electrical Cardioversion History: this is a 73-year-old lady who presented with atrial fibrillation with rapid ventricular rate. She was started on IV amiodarone and Cardizem infusion overnight, however still in atrial fibrillation. Anesthesia: By Anesthesia services Complications: None Specimen: None Contrast: 0 Flouroscopy: none Procedure Details: After informed consent was taken, all the risks and complications were explained including the risk of stroke. Transesophageal echocardiogram did not show left atrial or left atrial appendage thrombus.Electrical cardioversion was carried out with anesthesia support with propofol. 200 joules of synchronized shock was delivered through external patches which promptly restored sinus rhythm. The patient tolerated the procedure well. Conclusions: 1.Successful Cardioversion. 2.Continue oral anticoagulation and rate controlling agent. Raghav Way MD, [facility] Cardiac Electrophysiology Megan WAY MD Apr 22, 2019 11:30
--- NOTE | 2019-04-22 13:45 | NUR ---
DR CASTELLANOS NOTIFIED THIS NURSE THAT PT CAN GO HOME FROM HIS STANDPOINT THIS AFTERNOON. MED ORDERS GIVEN. PT WILL FOLLOW-UP WITH DR CASTELLANOS IN 3-4 WEEKS.
--- NOTE | 2019-04-22 14:00 | NUR ---
THIS NURSE NOTIFIED DR LUCIA- DR CASTELLANOS IS OKAY WITH PT DC LATER TODAY. DR LUCIA NOTIFIED THIS NURSE HE WOULD LIKE TO KEEP PT OVERNIGHT TO MONITOR SINCE PT AND FAMILY ARE NERVOUS ABOUT DC AND TO MAKE SURE PT CAN AFFORD MEDICATIONS. PT MAY GO TO THE FLOOR. NURSE NOTIFIED TL AND HOUSE SUP.
--- NOTE | 2019-04-22 15:34 | NUR ---
THIS NURSE CALLED REPORT TO [facility] ON FOURTH FLOOR. PT TAKEN DOWN VIA WHEELCHAIR WITH PERSONAL BELONGINGS.
[2019-04-22] MEDS: DILTIAZEM 120 MG (CARDIZEM CD) CAP PO SCH (15:36)
--- NOTE | 2019-04-22 15:45 | NUR ---
RECEIVED FROM ICU ALERT, DENIES PAIN OR SOB, TELEMETRY ON, SALINE LOCK WITHOUT REDNESS OR SWELLING, CALL LIGHT WITHIN REACH
[2019-04-22] MEDS: ACETAMINOPHEN 325 MG TABLET PO PRN (17:44)
--- NOTE | 2019-04-22 21:00 | NUR ---
REPORT GIVEN TO PORSHA PEARSON
[2019-04-23] MEDS: ACETAMINOPHEN 325 MG TABLET PO PRN (00:07)
[2019-04-23 00:44] VITALS: BP 136/79
[2019-04-23] MEDS: NS IV 500 ML 500 ML IV SCH (02:00)
[2019-04-23 04:00] VITALS: BP 121/61
[2019-04-23 05:05] VITALS: BP 121/61
[2019-04-23 06:02] LABS: HEMOGLOBIN 7.6 G/DL (11.5-16.0); MEAN PLATELET VOLUME 9.1 FL (7.4-10.4); RED CELL DISTRIBUTION WIDTH 16.5 % (10.0-14.5); WHITE BLOOD COUNT 6.5 10^3/uL (4.3-11.0)
[2019-04-23] MEDS: FERROUS SULF 325 MG (IRON) TAB PO SCH ×2 (06:09→11:31)
[2019-04-23] MEDS: CATHETER FLUSH 10 ML SYR IV SCH (06:11)
[2019-04-23 06:17] LABS: CREATININE SERUM 0.92 MG/DL (0.60-1.30); POTASSIUM 4.1 MMOL/L (3.6-5.0)
[2019-04-23 08:00] VITALS: BP 146/64
[2019-04-23] MEDS ORDERED: NAPR220T66 PO (08:29)
[2019-04-23] MEDS ORDERED: ACET-2650 PO (08:29)
[2019-04-23] MEDS: PRE MIX IV SCH (08:39)
[2019-04-23] MEDS: DILTIAZEM DRIP IV SCH (08:39)
[2019-04-23] MEDS: AMIODARONE 200 MG (CORDARONE) TAB PO SCH (08:47)
[2019-04-23] MEDS: DILTIAZEM 120 MG (CARDIZEM CD) CAP PO SCH (08:47)
[2019-04-23] MEDS ORDERED: FLU QUADRIvalent (5+ YOA) 2019-2020 (AFLURIA) 0.5 ML IM ONE (08:47)
[2019-04-23] MEDS: DOCUSATE SODIUM 100 MG (COLACE) CAP PO SCH (08:47)
[2019-04-23] MEDS: SENNOSIDES 8.6 MG (SENOKOT) TAB PO SCH (08:47)
[2019-04-23] MEDS: APIXABAN 5 MG (ELIQUIS) TABLET PO SCH (08:47)
--- NOTE | 2019-04-23 09:30 | NUR ---
PRIOR TO A.M. MEDS PULSE WAS 80 B/P WAS 146/64.
--- NOTE | 2019-04-23 09:30 | NUR ---
SPOKE WITH THE PT TO COMPLETE THE MED REC. PT SAYS SHE DOES NOT TAKE ANY PRESCRIPTION MEDS. OTC MEDS: ALEVE TYLENOL ARTHRITIS
[2019-04-23] MEDS ORDERED: AMIO200T4 PO (12:27)
[2019-04-23] MEDS ORDERED: DILT-27 PO (12:27)
[2019-04-23] MEDS ORDERED: APIX5TAB PO (12:27)
[2019-04-23] MEDS ORDERED: FERR325T18 PO (12:27)
--- NOTE | 2019-04-23 12:37 | Cardiology Progress Note ---
Cardiology SOAP Progress Note Subjective: No cardiac complaints. Objective: I&O/Vital Signs 04/23/19 04/23/19 04/23/19 04/23/19 00:44 01:00 04:00 05:05 Temp 36.7 36.5 36.5 Pulse 84 80 79 79 Resp 20 16 16 B/P (MAP) 136/79 (98) 121/61 (81) 121/61 (81) Pulse Ox 99 98 98 O2 Delivery Room Air Room Air Room Air 04/23/19 04/23/19 04/23/19 06:43 08:00 09:00 Temp 36.2 Pulse 78 80 Resp 18 B/P (MAP) 146/64 (91) Pulse Ox 97 97 O2 Delivery Room Air Room Air 04/22/19 23:59 Intake Total 640 ml Output Total 750 ml Balance -110 ml Constitutional: appears stated age, AAO x 3; No apparent distress; PERRL, well- developed, well-nourished Respiratory: chest is bilaterally symmetric, lungs clear to auscultation Cardiovascular: regular rate-rhythm, S1 and S2 Gastrointestional: soft, audible bowel sounds; No spleenomegaly Extremities: normal range of motion, non-tender, normal inspection; No clubbing, No cyanosis; no lower extremity edema bilateral; No significant edema Neurologic/Psychiatric: no motor/sensory deficits, alert, normal mood/affect, oriented x 3, power is 5/5 both on sides Skin: normal color, warm/dry; No rash, No ulcerations Results/Procedures: Labs Laboratory Tests 04/23/19 05:46: White Blood Count 6.5, Red Blood Count 3.05L, Hemoglobin 7.6L, Hematocrit 27L, Mean Corpuscular Volume 88, Mean Corpuscular Hemoglobin 25, Mean Corpuscular Hemoglobin Concent 28L, Red Cell Distribution Width 16.5H, Platelet Count 419H, Mean Platelet Volume 9.1, Sodium Level 137, Potassium Level 4.1, Chloride Level 108H, Carbon Dioxide Level 20L, Anion Gap 9, Blood Urea Nitrogen 14, Creatinine 0.92, Estimat Glomerular Filtration Rate 60, BUN/Creatinine Ratio 15, Glucose Level 99, Calcium Level 10.0 Microbiology 04/20/19 Influenza Types A,B Antigen (JACK) - Final, Complete A/P: Assessment/Dx: Atrial fibrillation with rapid ventricular rate, Typical atrial flutter, Significantly elevated blood sugars, Anemia. Plan: Atrial fibrillation with rapid ventricular rate, IV amiodarone, IV Cardizem, Eliquis. Cardioverted to sinus rhythm on 04/22/2019. Patient will be discharged on by mouth amiodarone, by mouth Cardizem and Eliquis. Follow-up in 3-4 weeks. Typical atrial flutter, close review of the telemetry strips suggest atrial flutter which degenerates into atrial fibrillation. Typical atrial flutter cannot be ruled out. She may require typical atrial flutter ablation in the future. Significantly elevated blood sugars, deferred to the primary team. Anemia. Deferred to the primary team. Thank you for your consultation. Please call me if you have any questions. Raghav Way MD, FACP, FACC, FSCAI, FHRS, CCDS Interventional Cardiology Cardiac Electrophysiology Vascular Medicine and Endovascular Interventions Clinical Quality Measures AMI/AHF: ASA po Prior to arrival: Megan Bravo MD Apr 23, 2019 12:37
--- NOTE | 2019-04-23 12:45 | Discharge Inst-Simple/Standard ---
Discharge Inst-Standard Reconcile Patient Problems Problems Reviewed?: Yes Discharge Medications New, Converted or Re-Newed RX: Transmitted to Pharmacy Patient Instructions/Follow Up Plan of Care/Instructions/FU: Please continue to take your medications as written. Please follow up with your primary care doctor in the next week and with Dr Way in 3 weeks. Activity as Tolerated: Yes Discharge Diet: Cardiac Diet Return to The Hospital For: Chest pain, racing heart rate, shortness of breath, dark or bloody stools, if you feel you are getting worse. ARMIDA SAMAYOA MD Apr 23, 2019 12:45
--- NOTE | 2019-04-23 13:13 | Discharge Summary ---
Diagnosis/Chief Complaint Date of Admission Apr 20, 2019 at 14:08 Date of Discharge Discharge Date: Apr 23, 2019 Admission Diagnosis paroxysmal atrial fibrillation with rapid ventricular response Primary Care No,Local Physician Discharge Diagnosis (1) Atrial fibrillation with rapid ventricular response Status: Acute (2) Anemia Status: Chronic (3) Morbid obesity Status: Chronic Discharge Summary Discharge Physical Exam Allergies: Coded Allergies: No Known Drug Allergies (Unverified , 04/20/19) Vitals & I&Os Vital Signs Date Time Temp Pulse Resp B/P (MAP) Pulse Ox O2 Delivery O2 Flow Rate FiO2 04/23/19 12:42 86 04/23/19 09:00 97 Room Air 04/23/19 08:00 36.2 18 146/64 (91) General Appearance: No Apparent Distress, WD/WN Cardiovascular: Regular Rate, Rhythm, No Murmur Neurologic/Psychiatric: Alert, Oriented x3, Normal Mood/Affect Hospital Course Patient is a 73-year-old female who was admitted for new onset atrial fibrillation with rapid ventricular rate. She was started on a Cardizem drip and amiodarone drip which did not successfully converted out of atrial fibrillation 30 controlled rate. She underwent cardioversion with Dr. Way which restored her to normal sinus rhythm. She was continued on oral Cardizem and amiodarone. She is certain when I will presents for anticoagulation for stroke prophylaxis. Discussed return precautions for falls, or bloody stools, or increased bleeding with new anticoagulation. She was discharged home in stable condition. Labs (last 24 hrs) Laboratory Tests 04/23/19 05:46: White Blood Count 6.5, Red Blood Count 3.05L, Hemoglobin 7.6L, Hematocrit 27L, Mean Corpuscular Volume 88, Mean Corpuscular Hemoglobin 25, Mean Corpuscular Hemoglobin Concent 28L, Red Cell Distribution Width 16.5H, Platelet Count 419H, Mean Platelet Volume 9.1, Sodium Level 137, Potassium Level 4.1, Chloride Level 108H, Carbon Dioxide Level 20L, Anion Gap 9, Blood Urea Nitrogen 14, Creatinine 0.92, Estimat Glomerular Filtration Rate 60, BUN/Creatinine Ratio 15, Glucose Level 99, Calcium Level 10.0 Microbiology 04/20/19 Influenza Types A,B Antigen (JACK) - Final, Complete Patient resulted labs reviewed. Pending Labs Laboratory Tests 04/23/19 05:46: White Blood Count 6.5, Red Blood Count 3.05, Hemoglobin 7.6, Hematocrit 27, Mean Corpuscular Volume 88, Mean Corpuscular Hemoglobin 25, Mean Corpuscular Hemoglobin Concent 28, Red Cell Distribution Width 16.5, Platelet Count 419, Mean Platelet Volume 9.1, Sodium Level 137, Potassium Level 4.1, Chloride Level 108, Carbon Dioxide Level 20, Anion Gap 9, Blood Urea Nitrogen 14, Creatinine 0.92, Estimat Glomerular Filtration Rate 60, BUN/Creatinine Ratio 15, Glucose Level 99, Calcium Level 10.0 Imaging: Reviewed Imaging Report Discussion & Recommendations Discharge Planning: >30 minutes discharge planning Discharge Home Medications: Active Scripts Active Ferrous Sulfate 325 Mg Tablet 325 Mg PO TIDWM Eliquis (Apixaban) 5 Mg Tablet 5 Mg PO BID Diltiazem 24Hr ER (Diltiazem HCl) 120 Mg Cap.er.24h 120 Mg PO DAILY Amiodarone HCl 200 Mg Tablet 200 Mg PO DAILY Reported Aleve (Naproxen Sodium) 220 Mg Tablet 440 Mg PO Q8H PRN Instructions to patient/family Please see electronic discharge instructions given to patient. Clinical Quality Measures AMI/AHF: ASA po Prior to arrival: No DVT/VTE Risk/Contraindication: Risk Factor Score Per Nursin RFS Level Per Nursing on Admit: 4+=Very High Problem Qualifiers (1) Anemia: Anemia type: unspecified type Qualified Codes: D64.9 - Anemia, unspecified ARMIDA SAMAYOA MD Apr 23, 2019 13:13
[2019-04-23 13:28] VITALS: BP 146/64
== END 2019-04-23 13:45 | disposition home or self-care (01) | DRG 309 ==
LOC: ER FS 10:51 → ICU 14:08 → 4TH 04-22 15:51
PROVIDERS: ADMIT Internal Medicine; ATTEND Internal Medicine
PROC: 5A2204Z Restoration of Cardiac Rhythm, Single (ICD-10-PCS; principal; 2019-04-22)
DX: I48.0 Paroxysmal atrial fibrillation (principal); I48.3 Typical atrial flutter; E66.01 Morbid (severe) obesity due to excess calories; Z68.41 Body mass index [BMI] 40.0-44.9, adult; D50.9 Iron deficiency anemia, unspecified; R73.9 Hyperglycemia, unspecified; M54.9 Dorsalgia, unspecified; M25.551 Pain in right hip; M19.91 Primary osteoarthritis, unspecified site; F41.9 Anxiety disorder, unspecified; Z23 Encounter for immunization
CPT/HCPCS: 36415; 71045; 80048; 80053; 82607; 82728; 82746; 83540; 83735; 84443; 85007; 85025; 85027; 87804; 93005; 93306; 93312; 93320; 93325; 96365; 96367

== ENCOUNTER 2019-05-24 12:01 | Outpatient (RCR) | payer MEDICARE ==
[~2019-05-24 12:01] MED LIST: ACET-2650 PO; AMIO200T4 PO; APIX5TAB PO; DILT-27 PO; FERR325T18 PO; NAPR220T66 PO
== END 2019-08-22 | disposition home or self-care (01) ==
LOC: CARD 12:01
PROVIDERS: ATTEND Internal Medicine Interventional Cardiology
DX: I48.19 Other persistent atrial fibrillation (principal); I48.3 Typical atrial flutter

== ENCOUNTER → 2019-06-21 | Outpatient (CLI) | payer MEDICARE ==
[~2019-06-21] VITALS: Ht 170 cm; Wt 111.0 kg
[~2019-06-21] MED LIST changes: +CATHETER FLUSH 10 ML SYR IV PRN; +REGADENOSON 0.4 MG/5 ML SYR (LEXISCAN) IV ONE
[2019-06-21 12:36] VITALS: BP 163/75
[2019-06-21 12:39] VITALS: BP 175/79
--- NOTE | 2019-06-26 16:45 | Cardiology Stress Test Report ---
Stress Test Report Type of NM Stress Test: Test Type: LEXISCAN 0.4MG/5ML Date of Procedure/Referring: Date of Procedure: Jun 21, [address] MD Admitting Physician No,Local Physician Indications: Persistent atrial fibrillation Baseline Heart Rate: 67 Baseline Blood Pressure: Blood Pressure Systolic: 175 Blood Pressure Diastolic: 79 Baseline EKG: Baseline EKG: Sinus rhythm Summary & Conclusion: Summary: The patient was brought to the stress lab after informed consent was taken. Stress test was performed according to the Lexiscan protocol. 0.4 mg of IV Lexiscan was given. Low-grade exercise was performed. Baseline EKG showed sinus rhythm at 67 BPM, blood pressure 163/75 mmHg. Maximum heart rate of 76 bpm and blood pressure 171/80 mmHg. Patient did not have any chest pain, arrhythmias or ST segment changes during the stress test. 10.5 mCi of Myoview were given for rest imaging and 30 mCi of Myoview given for stress imaging. Transient ischemic dilatation score 1.03, EF 72 percent. Normal wall motion. Normal myocardial perfusion imaging during rest and stress. Conclusion: Pharmacological stress test was negative for ischemia. Normal LV function with no wall motion abnormalities. Normal myocardial perfusion imaging during rest and stress. Megan WAY MD Jun 26, 2019 16:45
== END ==
LOC: CARD 10:57
PROVIDERS: ATTEND Internal Medicine Interventional Cardiology
DX: I48.19 Other persistent atrial fibrillation (principal); I48.3 Typical atrial flutter
CPT/HCPCS: 78452; 93017

== ENCOUNTER → 2019-12-24 | Outpatient (CLI) | payer MEDICARE ==
[~2019-12-24] MED LIST changes: -CATHETER FLUSH 10 ML SYR IV PRN; -REGADENOSON 0.4 MG/5 ML SYR (LEXISCAN) IV ONE
== END ==
LOC: LAB FS 10:35
PROVIDERS: ATTEND Orthopaedic Surgery
DX: Z01.812 Encounter for preprocedural laboratory examination (principal); Z20.828 Contact with and (suspected) exposure to other viral communicable diseases
CPT/HCPCS: 87635